=== PATIENT | female | born 1980 | race Caucasian/White ===

== ENCOUNTER 2016-12-19 11:42 | Inpatient (IN) | payer MEDICAID ==
[~2016-12-19] VITALS: Ht 157.5 cm; Wt 70.3 kg
[2016-12-19 12:15] VITALS: Ht 157.5 cm; Wt 70.3 kg
[2016-12-19 12:16] VITALS: BP 105/57; PULSE 95; RESP 18
--- NOTE | 2016-12-19 12:24 | TRIAGE ---
OB Triage Datetime Report Generated by CPN: 12/19/2016 12:24 Datetime: 12/19/2016 12:23 Assessment Type: Admission Assessment Maternal Assessment Level of Consciousness: Fully Conscious DTR's/Clonus: DTRs 2+; No Clonus Headache: Denies Blurred Vision: No Respiratory Effort: Unlabored; Regular Rhythm; Equal Expansion Breath Sounds, Left: Clear and Equal Breath Sounds, Right: Clear and Equal Nausea/Vomiting: Denies RUQ Epigastric Pain: Denies Lower Extremities Edema: None Degree: None Upper Extremities Edema: None Degree: None Facial Edema: None Fall Risk Assessment History of Falling: (0) No Secondary Diagnosis: (0) No Ambulatory Aid: (0) Bedrest/Nurse Assist IV Therapy: (0) No Gait: (0) Normal/Bedrest/Immobile Mental Status: (0) Oriented to Own Ability Fall Score: 0 Fall Risk Score Definition: No Risk: No action required Datetime: 12/19/2016 12:22 EGA: 37.6 Datetime: 12/19/2016 12:21 Time of Arrival: 12/19/2016 11:30 Arrived By: Ambulatory Arrived From: Home Chief Complaint: UC'S Movement: Present Contractions: Regular Time Contractions Began: 12/18/2016 22:00 Rupture of Membranes: Denies Vaginal Bleeding: None Vaginal Discharge: Denies Recent Sexual Intercouse: Denies Abdominal Trauma: Not Applicable Patient Complaints: Contractions; Cramping Time Provider Notified: 12/19/2016 12:10 Provider Notified: DR HITCHCOCK Initial Plan: ANNI MANZO
[2016-12-19] MEDS ORDERED: OXYTOCIN 30 UNITS/LR 500 ML IV PRN (12:30)
[2016-12-19] MEDS ORDERED: IBUPROFEN 600 MG TAB PO PRN (12:30)
[2016-12-19] MEDS ORDERED: LACTATED RINGER'S 1,000 ML IV PRN (12:30)
[2016-12-19] MEDS ORDERED: CARBOPROST 250 MCG INJ IM PRN (12:30)
[2016-12-19] MEDS ORDERED: OXYTOCIN 30 UNITS/LR 500 ML IV SCH ×2 (12:30)
[2016-12-19] MEDS ORDERED: METHYLERGONOVINE 0.2 MG INJ IM PRN (12:30)
[2016-12-19] MEDS ORDERED: LIDOCAINE 1% (MPF) 30 ML INJ INJ PRN (12:30)
[2016-12-19] MEDS ORDERED: BUTORPHANOL 2 MG INJ IV PRN (12:30)
[2016-12-19] MEDS ORDERED: MISOPROSTOL 200 MCG TAB PR PRN (12:30)
[2016-12-19 12:57] LABS: ADD SCAN DIFF NO
[2016-12-19 13:00] LABS: BASOPHILS % 0.5 % (0.0-2.0); EOSINOPHILS % 0.2 % (0.0-7.0); HEMATOCRIT 28.7 % (37.0-47.0); HEMOGLOBIN 9.8 g/dl (12.0-16.0); LYMPHOCYTES # 1.7 10^3/ul (0.8-2.9); LYMPHOCYTES % 20.9 % (15.0-51.0); MEAN CORPUSCULAR HGB CONC 34.1 g/dl (32.0-37.0); MEAN CORPUSCULAR VOLUME 90.8 fl (82.0-101.0); MEAN PLATELET VOLUME 10.7 fl (7.4-10.4); MONOCYTE # 0.3 10^3/ul (0.3-0.9); MONOCYTES % 4.1 % (0.0-11.0); NEUTROPHIL # 5.9 10^3/ul (1.6-7.5); NEUTROPHILS % 73.7 % (39.0-77.0); PLATELET COUNT 282 10^3/UL (140-415); RED BLOOD COUNT 3.16 10^6/ul (4.20-5.40); RED CELL DISTRIBUTION WIDTH 12.4 % (11.5-14.5); WHITE BLOOD COUNT 8.1 10^3/ul (4.8-10.8)
[2016-12-19 13:19] LABS: INR 0.95; PROTIME 12.7 Sec (12.2-14.2)
[2016-12-19 13:20] LABS: PARTIAL THROMBOPLASTIN TIME 25.9 Sec (25.0-35.0)
[2016-12-19] MEDS: LACTATED RINGER'S 1,000 ML IV SCH ×2 (13:59→17:17)
[2016-12-19] MEDS ORDERED: AMPICILLIN 2 GM/NS (PMX) 100 ML ONE (14:34)
[2016-12-19] MEDS ORDERED: AMPICILLIN 2 GM/NS (PMX) 100 ML IVPB ONE (15:00)
[2016-12-19] MEDS ORDERED: FENTAnyl 2MCG/ML-ROPIV 0.2% 100 ML ONE (17:41)
[2016-12-19] MEDS ORDERED: FENTAnyl 2MCG/ML-ROPIV 0.2% 100 ML BAG EPI SCH (18:30)
[2016-12-19] MEDS ORDERED: NALOXONE (0.4 MG/ML) INJ IV PRN (18:30)
[2016-12-19] MEDS ORDERED: AMPICILLIN 1 GM/NS (PMX) 50 ML IVPB SCH (19:00)
--- NOTE | 2016-12-19 22:44 | HP ---
Date/Time of Note Date/Time of Note DATE: 12/19/16 TIME: 22:38 OB - History Hx of Present Free Text/Dictation 36-year-old with IUP at 37 weeks and 6 days and care at [facility] , presented in labor. She was 4/80/-3. GBS was unknown. Admited in labor and started on Abx, GBS prophylaxis. ISIDRA: 01/03/2017 FHT: Cat 1. contractions every 2-3/min Estimated Due Date: Jan 03, 2017 : 7 Para: 6 Spontaneous : 0 Care: Good Care Obstetrical Complications: None Past Family/Social History * Past Medical, Surgical, Family and Obstetric Histories reviewed from chart. Rubella: immune RPR/VDRL: Negative GBS Status: Unknown HBsAG: Negative OB Admission Exam Vital Signs Vital Signs Vital Signs Date Time Temp Pulse Resp B/P Pulse Ox O2 Delivery O2 Flow Rate FiO2 12/19/16 12:16 98.1 95 18 105/57 Room Air Physical Exam HEENT: WNL Lungs: Clear Abdomen: WNL Extremities: Normal Reflexes: Normal Cervical Dilatation: 4cm Effacement: 75% Station: -3 Membranes: Intact Heart Rate: 130's Accelerations: Accelerations Present Decelerations: Early Decelerations Varibility: Moderate Contractions on Admission: < 5 Minutes Apart Intensity: Moderate Last 72 hours Lab Results CBC & BMP 12/19/16 12:35 OB Assessment/Plan Reason for admission: active labor Other Assessment: IUP at 37 weeks and 6 days Active labor GBs unknown Started on GBS prophylaxis Anticipate Desires epidural for the labor pain CHRISTIANO HITCHCOCK MD Dec 19, 2016 22:44
--- NOTE | 2016-12-19 22:47 | LDN ---
Date/Time of Note Date/Time of Note DATE: 12/19/16 TIME: 22:44 Delivery Summary 12/19/2016 Weeks of Gestation 37 weeks and 6 days Placenta Delivered: Spontaneously Meconium: none Episiotomy: No Perineal laceration: 0 Laceration repair: supraurethral lacerations that repaired with 3-0 Vicryl. cathater placed and was noted to be intact. Anesthesia type: Epidural Estimated blood loss: 100 Sponge & Needle done & correct: Yes All needle counts correct: Yes Any foreign bodies felt in the: No Problems: Delivery Information Sex Infant Sex: female Apgars 1 Minute: 9 5 Minute: 9 Suctioning Nose & mouth suctioned at arcelia: Yes Delee suction performed: Yes Umbilical Cord Umbilical cord with: 3 Vessels Cord presentations: nuchal cord Nuchal cord present X: 1 Cord Blood was obtained: Yes CHRISTIANO HITCHCOCK MD Dec 19, 2016 22:47
[2016-12-20 00:30] VITALS: BP 105/59; PULSE 66; RESP 18
[2016-12-20] MEDS: LACTATED RINGER'S 1,000 ML IV* SCH ×3 (00:52→16:52)
[2016-12-20] MEDS ORDERED: METHYLERGONOVINE 0.2 MG TAB PO PRN (01:00)
[2016-12-20] MEDS ORDERED: ACETAMINOPHEN 325 MG TAB PO PRN (01:00)
[2016-12-20] MEDS ORDERED: WITCH HAZEL/GLYCERIN PAD PR PRN (01:00)
[2016-12-20] MEDS ORDERED: morphine 2 MG INJ IV PRN (01:00)
[2016-12-20] MEDS ORDERED: METHYLERGONOVINE 0.2 MG INJ IM PRN (01:00)
[2016-12-20] MEDS ORDERED: CARBOPROST 250 MCG INJ IM PRN (01:00)
[2016-12-20] MEDS ORDERED: ONDANSETRON 4 MG INJ IV PRN (01:00)
[2016-12-20] MEDS ORDERED: ZOLPIDEM 5 MG TAB PO PRN (01:00)
[2016-12-20] MEDS ORDERED: OXYTOCIN 30 UNITS/LR 500 ML IV PRN (01:00)
[2016-12-20] MEDS ORDERED: DIPHENHYDRAMINE 25 MG CAP PO PRN (01:00)
[2016-12-20] MEDS ORDERED: MISOPROSTOL 200 MCG TAB PR PRN (01:00)
[2016-12-20] MEDS: SENNA/DOCUSATE NA (8.6MG/50MG) TAB PO SCH ×3 (01:00→20:48)
[2016-12-20] MEDS: IBUPROFEN 600 MG TAB PO SCH ×5 (01:00→23:58)
[2016-12-20] MEDS: ACETAMINOPHEN/CODEINE #3 TAB PO PRN ×4 (02:19→18:18)
[2016-12-20 04:30] VITALS: BP 93/55; PULSE 69; RESP 18
[2016-12-20 08:00] VITALS: BP 89/54; PULSE 68; RESP 18
[2016-12-20 09:59] LABS: HEMATOCRIT 28.4 % (37.0-47.0); HEMOGLOBIN 9.4 g/dl (12.0-16.0)
--- NOTE | 2016-12-20 12:04 | PN ---
Date/Time of Note Date/Time of Note DATE: 12/20/16 TIME: 12:03 OB Subjective Subjective Subjective December 20, 2016 OB Hospital ground Post day 1 Patient is doing well, Ambulatory She is afebrile Abdomen is soft , Fundus is firm Moderate amount of lochia Breasts are soft, Nipples are intact No calf tenderness. Perineum is healing well. Breast feeding the new born. Laboratory Tests Test 12/19/16 12:35 12/20/16 09:25 White Blood Count 8.110^3/ul Red Blood Count 3.1610^6/ul Hemoglobin 9.8g/dl 9.4g/dl Hematocrit 28.7% 28.4% Mean Corpuscular Volume 90.8fl Mean Corpuscular Hemoglobin 31.0pg Mean Corpuscular Hemoglobin Concent 34.1g/dl Red Cell Distribution Width 12.4% Platelet Count 08225^3/UL Mean Platelet Volume 10.7fl Neutrophils % 73.7% Lymphocytes % 20.9% Monocytes % 4.1% Eosinophils % 0.2% Basophils % 0.5% Nucleated Red Blood Cells % 0.0/100WBC Neutrophils # 5.910^3/ul Lymphocytes # 1.710^3/ul Monocytes # 0.310^3/ul Eosinophils # 0.010^3/ul Basophils # 0.010^3/ul Nucleated Red Blood Cells # 0.010^3/ul Prothrombin Time 12.7Sec Prothrombin Time Ratio 1.0 INR International Normalized Ratio 0.95 Activated Partial Thromboplast Time 25.9Sec Rapid Plasma Reagin NONREACTIVE Hepatitis B Surface Antigen NEGATIVE Current Medications Medications (Trade) Dose Ordered Sig/Tiago Route PRN Reason Start Time Stop Time Status Last Admin Dose Admin Lactated Ringer's (Lr) 1,000 ml @ 125 mls/hr Q8H IV 12/19/16 12:17 12/20/16 00:56 DC 12/19/16 17:17 Butorphanol Tartrate (Stadol) 2 mg Q2H PRN IV PAIN 12/19/16 12:30 12/20/16 00:56 DC Lidocaine 30 ml 30 ml ONCE PRN INJ EPISIOTOMY/TEARING 12/19/16 12:30 12/20/16 00:56 DC Oxytocin/Lactated Ringer's 500 ml @ 125 mls/hr ONCE -MAY REPEAT X1 IV 12/19/16 12:30 12/20/16 00:56 DC 12/19/16 21:38 Oxytocin/Lactated Ringer's 500 ml @ 125 mls/hr ONCE IV 12/19/16 12:30 12/20/16 00:58 DC 12/19/16 21:38 Ibuprofen 600 mg 600 mg ONCE PRN PO Mild Pain (Pain Score 1-3) 12/19/16 12:30 12/20/16 00:58 DC 12/19/16 22:07 Lactated Ringer's 1,000 ml @ 2,000 mls/hr Q30M PRN IV PRE-EPIDURAL BOLUS 12/19/16 12:30 12/20/16 00:58 DC Oxytocin/Lactated Ringer's 500 ml @ 0 mls/hr ONCE PRN IV For Hemorrhage Management 12/19/16 12:30 12/20/16 00:58 DC Methylergonovine Maleate (Methergine) 0.2 mg ONCE PRN IM VAGINAL BLEEDING 12/19/16 12:30 12/20/16 00:58 DC Carboprost Tromethamine (Hemabate) 250 mcg ONCE PRN IM VAGINAL BLEEDING 12/19/16 12:30 12/20/16 00:58 DC Misoprostol 1000 mcg 1,000 mcg ONCE PRN MS VAGINAL BLEEDING 12/19/16 12:30 12/20/16 00:58 DC Ampicillin 100 ml @ 100 mls/hr ONCE ONCE IVPB 12/19/16 15:00 12/19/16 15:59 DC 12/19/16 15:27 Ampicillin 50 ml @ 100 mls/hr Q4H IVPB 12/19/16 19:00 12/20/16 00:56 DC 12/19/16 18:56 Ampicillin 100 ml @ ud STK-MED ONCE .ROUTE 12/19/16 14:34 12/19/16 14:35 DC Fentanyl/ Ropivacaine 100 ml @ ud STK-MED ONCE .ROUTE 12/19/16 17:41 12/19/16 17:42 DC Naloxone HCl (Narcan) 0.2 mg Q2M PRN IV FOR RESP RATE 8 OR LESS 12/19/16 18:30 12/20/16 00:56 DC Fentanyl/ Ropivacaine 100 ml 100 ml EPIDURAL (PCEA) EPI 12/19/16 18:30 12/20/16 00:56 DC Lactated Ringer's (Lr) 1,000 ml @ 125 mls/hr Q8H IV* 12/20/16 00:52 Methylergonovine Maleate (Methergine) 0.2 mg Q6H PRN PO VAGINAL BLEEDING 12/20/16 01:00 Morphine Sulfate (morphine) 1 mg Q3H PRN IV PAIN LEVEL 6-10 12/20/16 01:00 Ibuprofen (Motrin) 600 mg Q6 PO 12/20/16 01:00 12/20/16 05:31 Acetaminophen/ Codeine Phosphate (Tylenol No.3) 1 tab Q4H PRN PO PAIN LEVEL 1-5 12/20/16 01:00 12/20/16 08:23 Ondansetron HCl (Zofran Inj) 4 mg Q6H PRN IV NAUSEA AND/OR VOMITING 12/20/16 01:00 Diphenhydramine HCl (Benadryl) 25 mg Q6H PRN PO PRURITUS 12/20/16 01:00 Zolpidem Tartrate (Ambien) 5 mg QHS PRN PO INSOMNIA 12/20/16 01:00 Senna/Docusate Sodium (Senokot-S) 1 tab BID PO 12/20/16 01:00 Witch [place]a/ Glycerin (Tucks Pads) 1 pad BEDSIDE MEDICATION PRN MS HEMORRHOID/EPISIOTMY PAIN 12/20/16 01:00 12/20/16 02:19 Measles/Mumps/ Rubella Vaccine Live (Mmr Ii Vaccine) 0.5 ml ONCE ONCE SC* 12/21/16 09:00 12/21/16 09:01 Diphtheria/ Tetanus/Acell Pertussis (Adacel) 0.5 ml ONCE ONCE IM* 12/21/16 09:00 12/21/16 09:01 Varicella Virus Vaccine Live (Varivax Vaccine With Diluent) 1,350 unit ONCE ONCE SC* 12/21/16 09:00 12/21/16 09:01 Acetaminophen 650 mg 650 mg Q4H PRN PO ELEVATED TEMPERATURE 12/20/16 01:00 Oxytocin/Lactated Ringer's 500 ml @ 0 mls/hr ONCE PRN IV For Hemorrhage Management 12/20/16 01:00 Methylergonovine Maleate (Methergine) 0.2 mg ONCE PRN IM VAGINAL BLEEDING 12/20/16 01:00 Carboprost Tromethamine (Hemabate) 250 mcg ONCE PRN IM VAGINAL BLEEDING 12/20/16 01:00 Misoprostol (Cytotec) 1,000 mcg ONCE PRN MS VAGINAL BLEEDING 12/20/16 01:00 KIKA ROBISON MD Dec 20, 2016 12:04
[2016-12-20 16:00] VITALS: BP 89/60; PULSE 77; RESP 18
[2016-12-20 20:30] VITALS: BP 107/69; PULSE 60; RESP 17
[2016-12-21] MEDS: LACTATED RINGER'S 1,000 ML IV* SCH ×2 (00:52→06:25)
[2016-12-21] MEDS: ACETAMINOPHEN/CODEINE #3 TAB PO PRN ×3 (02:20→11:56)
[2016-12-21 04:00] VITALS: BP 95/53; PULSE 62; RESP 18
[2016-12-21] MEDS: IBUPROFEN 600 MG TAB PO SCH ×2 (05:33→11:56)
[2016-12-21 08:23] VITALS: BP 100/60; PULSE 69; RESP 18
[2016-12-21] MEDS ORDERED: MEASLES,MUMPS,RUBELLA VACCINE INJ SC* ONE (09:00)
[2016-12-21] MEDS ORDERED: VARICELLA VACCINE LIVE/PF 1,350 UNIT/0.5 ML ML SC* ONE (09:00)
[2016-12-21] MEDS ORDERED: DIPHTH/TET/ACEL PERTUSS (ADULT) 0.5 ML VIAL IM* ONE (09:00)
[2016-12-21] MEDS: SENNA/DOCUSATE NA (8.6MG/50MG) TAB PO SCH (09:26)
--- NOTE | 2016-12-21 09:26 | PD.PPDC ---
ASSISTANT Discharge Instruction Diagnosis Final Diagnosis: Term .NVD. Condition Patient Condition: Good Diet Diet: Resume Regular Diet Activity/Restrictions Activity: Normal Activity May Shower Restrictions: No Exercising No Lifting No Sexual Activity Nothing in the Vagina No [place] No Tampons, douche Follow-up Follow-up with Physician: 2, Week/Weeks Return to clinic for [facility] WORKER Instructions: Fever greater than 101 Worsening abdominal pain Excessive Vaginal Bleeding Unable to tolerate diet OB Instructions: Breast Tenderness Surgical Instructions: Incisional Drainage Incisional Redness MAGUE MCLEOD MD Dec 21, 2016 09:25
--- NOTE | 2016-12-21 09:29 | DS ---
Date/Time of Note Date/Time of Note DATE: 12/21/16 TIME: 09:27 Obstetrical Discharge Record Final Diagnosis Final Diagnosis: Term delivered Vaginal Delivery Obstetrical Delivery: Spontaneous Complications Induction: No Rupture of Membranes: No Condition on Discharge Physical Assessment Last Vitals: Afebrile.Normal BP Voiding: Yes Bowel Movement: Yes Breast: Soft, non-tender Fundus: Firm Calf Tenderness: No Patient Condition: Good MAGUE MCLEOD MD Dec 21, 2016 09:29
== END 2016-12-21 14:50 | disposition home or self-care (01) | DRG 775 ==
LOC: OBT 11:42 → L-D 11:44 → OBT 12:00 → L-D 13:53 → PP1 12-20 00:26
PROVIDERS: ADMIT Obstetrics & Gynecology Obstetrics; ATTEND Obstetrics & Gynecology Obstetrics
PROC: 10E0XZZ Delivery of Products of Conception, External Approach (ICD-10-PCS; principal; 2016-12-19)
PROC: 3E033VJ Introduction of Other Hormone into Peripheral Vein, Percutaneous Approach (ICD-10-PCS; 2016-12-19)
PROC: 3E00X4Z Introduction of Serum, Toxoid and Vaccine into Skin and Mucous Membranes, External Approach (ICD-10-PCS; 2016-12-21)
DX: O80 Encounter for full-term uncomplicated delivery (principal); Z23 Encounter for immunization; Z3A.37 37 weeks gestation of pregnancy; Z37.0 Single live birth
CPT/HCPCS: 62319; 85014; 85018; 85025; 85610; 85730; 86592; 86900; 86901; 87340; 90715; 90716; G0463; J0290; J2590; J3010; J7120

== ENCOUNTER 2018-06-20 19:05 | Inpatient (IN) | payer MEDICAID ==
[~2018-06-20] VITALS: Ht 152.4 cm; Wt 80.9 kg
[2018-06-20] MEDS ORDERED: OXYTOCIN 30 UNITS/LR 1,000 ML IV ONE (19:21)
[2018-06-20] MEDS ORDERED: LIDOCAINE 1% (MPF) 30 ML INJ ONE (19:21)
[2018-06-20 19:22] VITALS: Ht 152.4 cm; Wt 80.9 kg
[2018-06-20] MEDS ORDERED: AMPICILLIN 2 GM/NS (PMX) 100 ML ONE (19:22)
[2018-06-20 19:23] VITALS: BP 131/82; PULSE 83; RESP 18
[2018-06-20] MEDS ORDERED: OXYTOCIN 30 UNITS/LR 500 ML IV SCH ×2 (19:30)
[2018-06-20] MEDS ORDERED: MISOPROSTOL 200 MCG TAB PR PRN ×2 (19:30→21:30)
[2018-06-20] MEDS ORDERED: IBUPROFEN 600 MG TAB PO PRN (19:30)
[2018-06-20] MEDS ORDERED: CARBOPROST 250 MCG INJ IM PRN ×2 (19:30→21:30)
[2018-06-20] MEDS ORDERED: LIDOCAINE 1% (MPF) 30 ML INJ INJ PRN (19:30)
[2018-06-20] MEDS ORDERED: METHYLERGONOVINE 0.2 MG INJ IM PRN ×2 (19:30→21:30)
[2018-06-20] MEDS ORDERED: BUTORPHANOL 2 MG INJ IV PRN (19:30)
[2018-06-20] MEDS ORDERED: AMPICILLIN 2 GM/NS (PMX) 100 ML IV ONE (19:30)
[2018-06-20] MEDS ORDERED: OXYTOCIN 30 UNITS/LR 500 ML IV PRN ×2 (19:30→21:30)
[2018-06-20] MEDS ORDERED: LACTATED RINGER'S 1,000 ML IV SCH (20:00)
--- NOTE | 2018-06-20 21:04 | HP ---
Date/Time of Note Date/Time of Note DATE: 06/20/18 TIME: 21:01 OB - History Hx of Present Free Text/Dictation 38-year-old G 12 P7047 (2 EP) with single intrauterine at 38 weeks and 1 day with a ISIDRA of 07/03/2018 complaining of uterine contractions. She states good movement. She denies nausea, vomiting, shortness of breath, chest pain, headache, visual changes, vaginal bleeding or LOF. Chief Complaint: Uterine contractions Estimated Due Date: Jul 03, 2018 : 12 Para: 7 Spontaneous : 2 Therapeutic : 0 Care: Limited Care Ultrasounds: No ultrasounds Obstetrical Complications: None Medical Complications: None Past Family/Social History * Past Medical, Surgical, Family and Obstetric Histories reviewed from chart. Blood Type: O+ Rubella: immune RPR/VDRL: Negative GBS Status: Unknown HBsAG: Negative OB Admission Exam Vital Signs Vital Signs Vital Signs Date Temp Pulse Resp B/P (MAP) Pulse Ox O2 O2 Flow FiO2 Time Delivery Rate 06/20/18 98.0 83 18 131/82 99 19:23 (98) Physical Exam HEENT: WNL Heart: Rhythm Normal Abdomen: WNL Extremities: Normal Cervical Dilatation: 4cm Effacement: 100% Station: -2 Heart Rate: 140's Accelerations: Accelerations Present Decelerations: No Decelerations Varibility: Moderate Contractions on Admission: < 5 Minutes Apart Intensity: Firm Last 72 hours Lab Results CBC & BMP 06/20/18 19:16 OB Assessment/Plan Other plan: 38-year-old G 12 P7047 at 38 weeks and 1 day in active labor - FHR: No sign of metabolic acidosis- Category I - Continuous EFM, toco - CBC, blood type and screen - Please see the orders - O+/Rubella: Immune - GBS: Unknown, ampicillin ordered Admission, procedures, expectations, risks and possible complications have been discussed in detail with the patient. Risk of vaginal delivery including but not limited to bleeding, infection, cervical laceration, placental retention, injury to fetus, blood transfusion, blood transfusion related infection, risk of anesthesia, adhesion, cervical laceration, episiotomy/laceration, possible delivery with risk of bleeding, infection, injury to other organs (bowel, bladder, ureter, vessels, nerves), injury to fetus, blood transfusion, blood transfusion related infection, risk of anesthesia, scar and hernia formation, needs for future , removal of uterus or any other indicated surgery discussed with the patient. She expressed understanding and repeats the risks. All of her questions were answered. She signed the informed consent. PHYSICIAN'S VERIFICATION OF INFORMED CONSENT The patient was counseled regarding the procedure, its indications, risks, potential complications and alternatives and any questions were answered. Consent was obtained. PLANNED PROCEDURE/TREATMENT: Vaginal delivery, episiotomy, repair of laceration possible delivery AWILDA MASTERS Jun 20, 2018 21:04
--- NOTE | 2018-06-20 21:07 | LDN ---
Date/Time of Note Date/Time of Note DATE: 06/20/18 TIME: 21:05 Delivery Summary 38-year-old G 12 P7047 with single intrauterine at 38 weeks and 1 day delivered a viable male over intact perineum. Nose and mouth suctioned. There was tight nuchal cord x1 which caught and clamped. Rest of body delivered. Baby given to the nurse. Placenta delivered spontaneously and intact with three-vessel cord. There was no laceration. Patient tolerated procedure well Time of delivery 19; 39 weight 7 pounds 13 ounces - 3555 g Amniotic fluid clear 9 at 1 minutes and 9 at 5 minutes EBL 250 mL Weeks of Gestation 38 weeks and 1 day Placenta Delivered: Spontaneously Meconium: none Anesthesia type: None Estimated blood loss: 250 Sponge & Needle done & correct: Yes All needle counts correct: Yes Any foreign bodies felt in the: No Delivery Information Sex Sex: male Apgars 1 Minute: 9 5 Minute: 9 10 Minute: 10 Suctioning Nose & mouth suctioned at arcelia: Yes Umbilical Cord Umbilical cord with: 3 Vessels Cord presentations: nuchal cord Nuchal cord present X: 1 Cord Blood was obtained: Yes Mother & Baby Disposition Disposition Mom & Baby to Maternity; Good: Yes AWILDA MASTERS Jun 20, 2018 21:07
[2018-06-20] MEDS ORDERED: DEXTROSE 5%-LR 1,000 ML IV SCH (21:14)
[2018-06-20] MEDS: LACTATED RINGER'S 1,000 ML IV* SCH (21:14)
[2018-06-20] MEDS ORDERED: LANOLIN HPA 1 PKT TOP PRN (21:30)
[2018-06-20] MEDS ORDERED: SENNA/DOCUSATE NA (8.6MG/50MG) TAB PO PRN (21:30)
[2018-06-20] MEDS ORDERED: BENZOCAINE 20% 56 ML SPRAY TOP PRN (21:30)
[2018-06-20] MEDS ORDERED: WITCH HAZEL/GLYCERIN PAD PR PRN (21:30)
[2018-06-20] MEDS ORDERED: DIPHENHYDRAMINE 50 MG INJ IV PRN (21:30)
[2018-06-20] MEDS ORDERED: ZOLPIDEM 5 MG TAB PO PRN (21:30)
[2018-06-20] MEDS ORDERED: DIBUCAINE 1% 30 GM OINT TOP PRN (21:30)
[2018-06-20] MEDS ORDERED: ONDANSETRON 4 MG INJ IV PRN (21:30)
[2018-06-20] MEDS ORDERED: ACETAMINOPHEN 325 MG TAB PO PRN (21:30)
[2018-06-20 22:00] VITALS: BP 112/65; PULSE 67; RESP 18
[2018-06-20] MEDS: OXYCODONE/ASPIRIN (4.88/325) TAB PO PRN (23:28)
[2018-06-20] MEDS ORDERED: AMPICILLIN 1 GM/NS (PMX) 50 ML IV SCH (23:30)
[2018-06-21] MEDS: IBUPROFEN 600 MG TAB PO SCH ×5 (00:13→23:37)
[2018-06-21] MEDS: LACTATED RINGER'S 1,000 ML IV* SCH ×2 (00:14→13:14)
[2018-06-21 03:28] VITALS: BP 106/58; PULSE 68; RESP 18
[2018-06-21] MEDS: OXYCODONE/ASPIRIN (4.88/325) TAB PO PRN ×4 (03:28→21:14)
[2018-06-21 08:43] VITALS: BP 95/54; PULSE 70; RESP 18
--- NOTE | 2018-06-21 12:27 | PN ---
Date/Time of Note Date/Time of Note DATE: 06/21/18 TIME: 12:25 OB Subjective Subjective Subjective PPD# 1 Patient is doing well. She denies nausea, vomiting, shortness of breath, chest pain, headache. She has been ambulating without difficulty, tolerating regular diet. Pain is well controlled on current medications OB Objective Objective Objective VS - Last 72 Hours, by Label Date Temp Pulse Resp B/P (MAP) Pulse Ox O2 O2 Flow FiO2 Time Delivery Rate 06/21/18 98.7 70 18 95/54 (68) Room Air 08:43 06/21/18 98.3 68 18 106/58 Room Air 03:28 (74) 06/20/18 98.1 67 18 112/65 Room Air 22:00 (81) 06/20/18 98.0 83 18 131/82 99 19:23 (98) General: AAO X 3, comfortable, NAD, appropriate mood and affect. ABD: +BS. Soft, non-tender. Uterus 2 cm below umbilicus Flank: No CVA tenderness (B/L) LE: Mild edema. No clubbing, cyanosis, thigh or calf tenderness (B/L). Homans 'sign is negative Laboratory Tests Test 06/20/18 19:16 06/21/18 06:12 06/21/18 07:12 White Blood Count 10.4 10^3/ul 11.0 10^3/ul Red Blood Count 3.48 10^6/ul 3.39 10^6/ul Hemoglobin 11.2 g/dl 10.7 g/dl Hematocrit 33.3 % 32.2 % Mean Corpuscular Volume 95.7 fl 95.0 fl Mean Corpuscular 32.2 pg 31.6 pg Hemoglobin Mean Corpuscular 33.6 g/dl 33.2 g/dl Hemoglobin Concent Red Cell Distribution 12.3 % 12.0 % Width Platelet Count 312 10^3/UL 289 10^3/UL Mean Platelet Volume 10.4 fl 10.5 fl Immature Granulocytes % 0.700 % 0.600 % Neutrophils % 72.5 % 73.6 % Lymphocytes % 21.6 % 19.7 % Monocytes % 4.7 % 5.5 % Eosinophils % 0.2 % 0.2 % Basophils % 0.3 % 0.4 % Nucleated Red Blood Cells 0.0 /100WBC 0.0 /100WBC % Immature Granulocytes # 0.070 10^3/ul 0.070 10^3/ul Neutrophils # 7.5 10^3/ul 8.1 10^3/ul Lymphocytes # 2.2 10^3/ul 2.2 10^3/ul Monocytes # 0.5 10^3/ul 0.6 10^3/ul Eosinophils # 0.0 10^3/ul 0.0 10^3/ul Basophils # 0.0 10^3/ul 0.0 10^3/ul Nucleated Red Blood Cells 0.0 10^3/ul 0.0 10^3/ul # Prothrombin Time 11.8 Sec Prothrombin Time Ratio 0.9 INR International 0.86 Normalized Ratio Activated 23.9 Sec Partial Thromboplast Time Hepatitis B Surface NEGATIVE Antigen Lab Scanned Report REFERENCE LAB [id number] OB Assessment/Plan Other plan: 38-year-old s/p normal vaginal delivery at 38 weeks and 1 day. PPD#1 - AF, VSS - Baby is doing well, at bed side. She is bonding well - Contraception methods with R/B/A/FR discussed - Continue care - Discharge home tomorrow - Rx and instruction given - Follow up in 2 and 6 weeks at clinic AWILDA MASTERS Jun 21, 2018 12:27
--- NOTE | 2018-06-21 12:28 | DS ---
Date/Time of Note Date/Time of Note DATE: 06/21/18 TIME: 12:27 Obstetrical Discharge Record Final Diagnosis Final Diagnosis: Term delivered Other Final Diagnosis 38-year-old s/p normal vaginal delivery at 38 weeks and 1 day. PPD#1. Her course was unremarkable. She is ambulating and tolerating regular diet. She is voiding without difficulty. Pain is well controlled on current medication. - AF, VSS - Baby is doing well, at bed side. She is bonding well - Contraception methods with R/B/A/FR discussed - Continue care - Discharge home tomorrow - Rx and instruction given - Follow up in 2 and 6 weeks at clinic Condition on Discharge Physical Assessment Last Vitals: Vital Signs Date Temp Pulse Resp B/P (MAP) Pulse Ox O2 O2 Flow FiO2 Time Delivery Rate 06/21/18 98.7 70 18 95/54 (68) Room Air 08:43 06/20/18 99 19:23 Voiding: Yes Bowel Movement: Yes Breast: Soft, non-tender Fundus: Firm Calf Tenderness: No Patient Condition: Stable AWILDA MASTERS Jun 21, 2018 12:28
[2018-06-21 15:59] VITALS: BP 97/62; PULSE 74; RESP 18
[2018-06-21 19:35] VITALS: BP 94/51; PULSE 71; RESP 18
[2018-06-22] MEDS: OXYCODONE/ASPIRIN (4.88/325) TAB PO PRN (01:23)
[2018-06-22 04:00] VITALS: BP 97/54; PULSE 83; RESP 20
[2018-06-22] MEDS: IBUPROFEN 600 MG TAB PO SCH ×2 (05:39→12:01)
[2018-06-22 08:00] VITALS: BP 85/59; PULSE 77; RESP 16
[2018-06-22] MEDS ORDERED: MEASLES,MUMPS,RUBELLA VACCINE INJ SC* ONE (09:00)
[2018-06-22] MEDS ORDERED: DIPHTH/TET/ACEL PERTUSS (ADULT) 0.5 ML VIAL IM* ONE (09:00)
== END 2018-06-22 13:21 | disposition home or self-care (01) | DRG 807 ==
LOC: L-D 19:05 → PP1 21:48
PROVIDERS: ADMIT Obstetrics & Gynecology; ATTEND Obstetrics & Gynecology
PROC: 10E0XZZ Delivery of Products of Conception, External Approach (ICD-10-PCS; principal; 2018-06-20)
DX: O69.1XX0 Labor and delivery complicated by cord around neck, with compression, not applicable or unspecified (principal); Z37.0 Single live birth; Z3A.38 38 weeks gestation of pregnancy
CPT/HCPCS: 85025; 85610; 85730; 86592; 86850; 86900; 86901; 87340; J0290; J0595; J2590; J7120; J7121